=== PATIENT | male | born 1985 | race Caucasian/White ===

== ENCOUNTER 2016-12-01 12:33 | Emergency (ER) | payer SELFPAY ==
[~2016-12-01] VITALS: Ht 190.5 cm; Wt 136.1 kg
[~2016-12-01 12:33] MED LIST: KEFLEX500 MG PO; VICODIN ES 7501 TAB PO
[2016-12-01] MEDS ORDERED: NAPROSYN500 MG PO (13:14)
[2016-12-01] MEDS ORDERED: AMOXICILLIN500 M2 PO (13:14)
== END 2016-12-01 13:30 | disposition home or self-care (01) ==
LOC: ED 12:33
DX: K08.89 Other specified disorders of teeth and supporting structures (principal); F17.200 Nicotine dependence, unspecified, uncomplicated

== ENCOUNTER 2020-02-10 16:24 | Emergency (ER) | payer SELFPAY ==
[~2020-02-10] VITALS: Wt 127.0 kg
[~2020-02-10 16:24] MED LIST changes: +AMOXICILLIN500 M2 PO; +NAPROSYN500 MG PO
[2020-02-10 17:02] LABS: BILIRUBIN NEGATIVE; BLOOD 2+ (NEGATIVE); CLARITY CLEAR (CLEAR); COLOR YELLOW (YELLOW); GLUCOSE NEGATIVE; KETONE NEGATIVE; LEUKO ESTERASE TRACE (NEGATIVE); NITRITE NEGATIVE (NEGATIVE); PH 6.5 (4.5-8.0)
[2020-02-10 17:06] LABS: BACTERIA 1+
[2020-02-10] MEDS ORDERED: CIPRO500 MG PO (19:23)
== END 2020-02-10 19:25 | disposition home or self-care (01) ==
LOC: ED 16:24
PROVIDERS: Nurse Practitioner Family
DX: R31.9 Hematuria, unspecified (principal); F17.200 Nicotine dependence, unspecified, uncomplicated